=== PATIENT | male | born 1980 | race Caucasian/White ===

== ENCOUNTER 2019-10-30 02:17 | Emergency (ER) | payer OTHER, SELFPAY ==
[2019-10-30 02:30] VITALS: BP 156/91; RESP 16; TEMP 36.7; BMI 27.8
[2019-10-30 02:35] VITALS: PULSE 64; O2SAT 100
--- NOTE | 2019-10-30 02:47 | ED_ITS ---
HPI - Extremity Problem General: Chief complaint: Extremity Injury, Upper Stated complaint: R HAND LAC/WC Time Seen by Provider: 10/30/19 02:47 History of Present Illness: HPI Narrative: Patient is a 39-year-old male comes into the ED with a laceration to his right hand. Laceration is over the knuckle of right fifth finger. Patient says a piece of glass broke and cut skin over knuckle of right 5th finger. Patient had his tetanus vaccination within the la [facility] 2 years. He has no pain moving his fifth finger and has sensation to his fifth finger. Patient denies any fever, chills, chest pain, nausea, vomiting, shortness of breath, abdominal pain, numbness or tingling to extremities, upper respiratory symptoms, dysuria, hematuria, diarrhea, constipation, blood in the stool. Review of Systems General: Reports: 10 or more systems reviewed and unremarkable except in HPI and below PFSH ED PFSH: Statuses (acute, chronic, etc) shown below reflect problem list status as previously entered and may not be historically accurate Social History Smoking and tobacco status: current every day smoker Physical Exam Const: COMMON NORMALS: oriented x3 HENMT: COMMON NORMALS: normocephalic HEAD & SCALP: normocephalic MOUTH: oral and palatal mucosa normal THROAT: posterior oropharynx normal and uvula midline Neck/C-Spine: COMMON NORMALS: supple GENERAL: Yes normal visual inspection Resp: COMMON NORMALS: normal respiratory effort, no retractions, no use of accessory muscles and clear to auscultation bilaterally AUSCULTATION: clear to auscultation bilaterally Cardio: COMMON NORMALS: regular rate, regular rhythm, S1 normal heart sound, S2 normal heart sound, no gallops, no clicks, no murmurs and peripheral pulses 2+ throughout RATE: regular rate RHYTHM: regular rhythm HEART SOUNDS: S1 normal and S2 normal PERIPHERAL PULSES: pulses 2+ throughout GI: COMMON NORMALS: normal to inspection, nondistended, normoactive bowel sounds, soft to palpation, non-tender and no masses PALPATION: Yes soft : COMMON NORMALS: Yes no CVA tenderness BLADDER/KIDNEY EXAM: Yes no CVA tenderness Back/Pelvis: COMMON NORMALS: no CVA tenderness Extremity: RIGHT UPPER EXTREMITY: Yes hand & digits Right hand and digits: Yes ROM exam (normal) and Yes neurovascular exam (intact) Neuro: COMMON NORMALS: oriented x3 Skin: TRAUMA: laceration (3cm-no nail involvement) flap, superficial, motor nerve function intact and sensation intact Procedures Laceration Laceration 1: Site: hand Side (If applicable): right Size (cm): 3 Description: flap Depth: simple, single layer Pre-repair: irrigated extensively (Irrigated w/ N Saline and cleane with HCG.) Skin layer closed with: other (Dermabond and Steri strips.) Course ED course: Laceration was irrigated extensively with normal saline and then cleaned with CHG. laceration was closed using Dermabond and Steri-Strips. A bandage was then placed over laceration. Vital Signs: Vital signs: Vital Signs Temperature 98.1 F 10/30/19 02:30 Pulse Rate 58 L 10/30/19 03:51 Respiratory Rate 17 10/30/19 03:51 Blood Pressure 156/91 10/30/19 02:30 Pulse Oximetry 98 10/30/19 03:51 Discharge Plan Discharge Patient Disposition: Home, Self-Care Clinical Impression: Laceration Condition: Stable Prescriptions: New Bactrim DS 800-160 mg tablet 1 tab PO DAILY 5 Days Qty: 5 RF: 0 Discharge Orders: Discharge Order (Routine); Ordered 10/30/19 Ordered By: Marlon Ma Referrals: Ismael Nieves MD [Family Provider] - Discharge Diet: Regular Discharge Activity: Resume usual activity Activity Restrictions/Additional Instructions: Keep wound area clean and dry and do not remove bandage for 48 hours. Then he can remove bandage in clean with warm soapy water daily. Take full course of antibiotics as prescribed. Follow-up with primary care doctor for reevaluation in 5-7 days. Watch for signs of infection such as redness or warmth or drainage around laceration. Discharge Date/Time: 10/30/19 03:51 Coding Level of Care Code ED Deaf Interpreter for Dwight Jensen
[2019-10-30 03:51] VITALS: PULSE 58; RESP 17; O2SAT 98
== END 2019-10-30 03:51 | disposition home or self-care (01) ==
PROVIDERS: Emergency Provider Physician Assistant; Family Provider Family Medicine
DX: S61.411A Laceration without foreign body of right hand, initial encounter (principal); W25.XXXA Contact with sharp glass, initial encounter; F17.210 Nicotine dependence, cigarettes, uncomplicated
CPT/HCPCS: 12002; 99281; A4216

== ENCOUNTER 2019-10-30 18:51 | Emergency (ER) | payer OTHER, SELFPAY ==
[2019-10-30 19:05] VITALS: BP 140/87; PULSE 76; RESP 18; TEMP 36.8; O2SAT 99; BMI 26.3
--- NOTE | 2019-10-30 19:18 | ED_ITS ---
Entered by Melody Jimenez, acting as scribe for Alis Manuel DO HPI - Extremity Problem General: Chief complaint: Extremity Injury, Upper Stated complaint: right hand pain Time Seen by Provider: 10/30/19 19:18 Source: patient Mode of arrival: ambulatory Limitations: no limitations History of Present Illness: HPI Narrative: 39 yo m came to the er pov for re- opened wound that was glued last night. Complaint: extremity pain Onset (ago): day(s) (today) Location: right (uckle) Quality: other (pain) Radiation: none Exacerbating factors: nothing Associated symptoms: Reports no associated symptoms; Deny chest pain, fever(s) or rash Review of Systems General: Reports: 10 or more systems reviewed and unremarkable except in HPI and below Const: Denies: fever, chills, change in appetite or malaise Eyes: Denies: change in vision, blurry vision, eye discharge or eye redness ENMT: Denies: throat pain, uvular edema, painful swallowing, mouth pain, dental pain, nasal congestion or facial/sinus pain Card: Denies: chest pain, irregular heart rhythm, swelling of feet/ankles, shortness of breath on exertion, shortness of breath when lying down or leg pain with exertion Resp: Denies: shortness of breath, productive cough, wheezing or coughing up blood GI: Denies: abdominal pain, nausea, vomiting, diarrhea, constipation or fecal incontinence : Denies: flank pain, painful urination, urinary frequency, urinary urgency or urinary hesitancy Musc: Denies: neck pain, back pain, extremity pain or extremity swelling Skin/Breast: Denies: rash, itching, redness, yellow skin or dry skin Neuro: Denies: headache, numbness in extremities, weakness in extremities, changes in sensation, lack of coordination or difficulty walking Psych: Denies: anxiety, depression, mood swings, panic attacks, sleeping less, suicidal ideation or homicidal ideation Endo: Denies: excessive urination, excessive thirst or tired all the time Jayce/Lymph: Denies: easy bruising, petechiae or enlarged lymph nodes All/Imm: Denies: hives, throat swelling, facial swelling, acute wheezing or seasonal allergies PFSH ED PFSH: Statuses (acute, chronic, etc) shown below reflect problem list status as previously entered and may not be historically accurate Social History Smoking and tobacco status: current every day smoker Physical Exam Const: COMMON NORMALS: no apparent distress, oriented x3, no limitations, healthy appearing, alert and well nourished GENERAL APPEARANCE: cooperative, comfortable, well kempt and well developed ORIENTATION/CONSCIOUSNESS: Yes awake, Yes oriented to person, Yes oriented to place and Yes oriented to time HENMT: COMMON NORMALS: normocephalic, head/scalp atraumatic, hearing grossly normal bilaterally, external ears normal, EAC's normal, TM's normal bilaterally, external nose normal, nasal mucous membranes and turbinates normal, moist oral mucous membranes, oropharynx normal, dentition normal and gingiva normal HEAD & SCALP: normal to inspection, normocephalic and atraumatic FACE & SINUS: normal facial exam NOSE: external nose normal and nasal mucous membranes and turbinates normal EXTERNAL EAR: Yes external ears normal EXTERNAL AUDITORY CANAL: EAC's normal TYMPANIC MEMBRANE: TM's normal bilaterally MOUTH: oral and palatal mucosa normal, lip normal and tongue normal THROAT: no uvular edema Eye: COMMON NORMALS: PERRL, EOMs intact bilaterally, conjunctivae normal, no scleral icterus and normal visual [place] by confrontation GENERAL EYE: normal appearance of both eyes and normal light reflex VISUAL ACUITY: Yes acuity normal ALIGNMENT: Yes alignment normal PERIORBITAL: periorbital findings normal EYELID: eyelids normal CONJUNCTIVA: Yes conjunctivae normal SCLERA: sclerae normal PUPIL: Yes PERRL and Yes accommodation reflex normal DIRECT OPHTHALMOSCOPY: Yes normal light reflex Neck/C-Spine: COMMON NORMALS: full ROM, no lymphadenopathy, supple, no meningeal signs and no JVD GENERAL: Yes normal visual inspection CAROTIDS: Yes normal carotid upstroke CERVICAL SPINE: Yes cervical ROM normal Lymph: LYMPHATIC: no lymphadenopathy noted Chest: COMMONS NORMALS: inspection of chest normal CHEST: Yes symmetrical chest wall rise Resp: COMMON NORMALS: normal respiratory effort, no retractions, no use of accessory muscles and clear to auscultation bilaterally EFFORT & INSPECTION: Yes able to speak in complete sentences and Yes symmetric chest movement AUSCULTATION: clear to auscultation bilaterally Cardio: COMMON NORMALS: no JVD, regular rate, regular rhythm, S1 normal heart sound, S2 normal heart sound, no murmurs and peripheral pulses 2+ throughout RATE: regular rate RHYTHM: regular rhythm HEART SOUNDS: S1 normal and S2 normal PERIPHERAL PULSES: pulses 2+ throughout GI: COMMON NORMALS: normal to inspection, nondistended, normoactive bowel sounds and non-tender : COMMON NORMALS: Yes no CVA tenderness BLADDER/KIDNEY EXAM: Yes no CVA tenderness Back/Pelvis: COMMON NORMALS: no CVA tenderness, thoracic and lumbar spine normal to inspection, no thoracic nor lumbar tenderness and thoraco-lumbar ROM normal Extremity: COMMON NORMALS: full ROM, normal capillary refill, no calf tenderness and no pedal edema Neuro: COMMON NORMALS: oriented x3, CN's II-XII intact bilaterally, moves all extremities, no focal motor deficits, no sensory deficits noted and gait normal SENSORIUM/ORIENTATION: Yes alert, Yes oriented to person, Yes oriented to place and Yes oriented to time MENINGEAL SIGNS: Yes no meningeal signs SPEECH: speech normal GAIT: Yes normal gait MOTOR EXAM: strength 5/5 throughout, no pronator drift and no tremor noted Psych: COMMON NORMALS: mental status grossly normal, thought process normal, cooperative, affect normal, speech normal and activity/motor behavior normal APPEARANCE: Yes well kempt SPEECH: Yes normal speech THOUGHT PROCESS: normal thought process THOUGHT CONTENT: Yes normal thought content INSIG HT: insight good Skin: COMMON NORMALS: no rashes or lesions noted, no wounds, skin turgor normal and no jaundice GENERAL SKIN EXAM: no rashes or lesions noted and turgor normal Procedures Laceration Laceration 1: Site: hand (fifth MCP right hand) Side (If applicable): right Size (cm): 2 Description: flap Depth: simple, single layer Pre-repair: irrigated extensively Skin layer closed with: other (Dermabond) Course ED course: wound cleansed and dermabond applied with steri strips. Splint applied to keep pt from flexing at joint to assist in wound healing. Vital Signs: Vital signs: Vital Signs Temperature 98.2 F 10/30/19 19:05 Pulse Rate 76 10/30/19 19:05 Respiratory Rate 18 10/30/19 19:05 Blood Pressure 140/87 10/30/19 19:05 Pulse Oximetry 99 10/30/19 19:05 Discharge Plan Discharge Patient Disposition: Home, Self-Care Clinical Impression: Laceration Condition: Stable Prescriptions: No Action Bactrim DS 800-160 mg tablet 1 tab PO DAILY 5 Days Qty: 5 RF: 0 Referrals: Ismael Nieves MD [Family Provider] - Discharge Diet: Usual diet Discharge Activity: Limit activity as instructed Patient Instructions: Skin Adhesive Care (ED), Finger Laceration (ED) Coding Level of Care Code ED Greeting Card Writer for Chg Fwd Exam Problem Focused The documentation recorded by the Tony paris Stephanie Lyn, accurately reflects the service I personally performed and the decisions made by , Alis Manuel, DO
--- NOTE | 2019-10-30 19:44 | PC.NURSE ---
Wound to right hand glued and aluminum finger splint was placed, neurovascular intact, cap refill less than 3 seconds
== END 2019-10-30 19:53 | disposition home or self-care (01) ==
LOC: ER 23:05
PROVIDERS: Emergency Provider Emergency Medicine; Family Provider Family Medicine
DX: S61.216A Laceration without foreign body of right little finger without damage to nail, initial encounter (principal); X58.XXXA Exposure to other specified factors, initial encounter; F17.210 Nicotine dependence, cigarettes, uncomplicated
CPT/HCPCS: 12001; 99281

== ENCOUNTER 2019-11-07 09:23 | Emergency (ER) | payer OTHER, SELFPAY ==
[2019-11-07 09:26] VITALS: RESP 16; BMI 26.3
--- NOTE | 2019-11-07 09:29 | ED_ITS ---
Entered by Yamilka Key, acting as scribe for HPI - Skin/Abscess/Foreign Bdy General: Chief complaint: Extremity Injury, Upper Stated complaint: Right hand pain Time Seen by Provider: 11/07/19 09:29 Source: patient Mode of arrival: ambulatory Limitations: no limitations History of Present Illness: HPI narrative: 39 yo male presents with R hand tenderness. pt states this started 7 days ago but worsened today. pt states he cut his hand on glass. pt states he was seen in the ED for the same they glued it twice and placed on antibiotics- Bacterium. pt states his hand is tender and its hard to move his hand back and forth. pt has had increased redness and felt like he had a fever at home. pt has had chills. pt denies any other symptoms at this time. MD complaint: laceration and abscess/boil Onset (ago): day(s) (3 days ago) Tetanus up to date: yes Location: R hand Severity: moderate Quality: other Pain Consistency: constant Relieving factors: none Exacerbating factors: movement (of the hand) Context: new medication (Bactrium) Associated symptoms: Reports chills, fever(s) (subjective) and other (tenderness); Deny nausea or vomiting Treatments prior to arrival: antibiotic (Bactrium 3 days ago from ED) Review of Systems Const: Reports: fever (subjective) and chills Eyes: Denies: blurry vision or eye discharge ENMT: Denies: throat pain, nasal congestion or facial/sinus pain Card: Denies: chest pain or shortness of breath on exertion Resp: Denies: shortness of breath, productive cough or non-productive cough GI: Denies: abdominal pain, nausea, vomiting, diarrhea or constipation : Denies: difficulty urinating or painful urination Musc: Reports: extremity pain, extremity swelling and joint pain; Denies: neck pain or back pain Skin/Breast: Reports: redness (R hand) and skin tenderness Neuro: Denies: headache, numbness in extremities, weakness in extremities or dizziness Psych: Denies: anxiety or depression Endo: Denies: excessive urination or excessive thirst Jayce/Lymph: Denies: easy bruising, petechiae or enlarged lymph nodes All/Imm: Denies: acute wheezing PFSH ED PFSH: Statuses (acute, chronic, etc) shown below reflect problem list status as previously entered and may not be historically accurate Medical History Amputation of right middle finger (Acute) Social History Smoking and tobacco status: current every day smoker Physical Exam Const: COMMON NORMALS: no apparent distress, oriented x3, no limitations, healthy appearing, alert and well nourished GENERAL APPEARANCE: cooperative, comfortable, well kempt and well developed ORIENTATION/CONSCIOUSNESS: Yes awake, Yes oriented to person, Yes oriented to place and Yes oriented to time HENMT: COMMON NORMALS: normocephalic, head/scalp atraumatic, hearing grossly normal bilaterally, external ears normal, external nose normal and moist oral mucous membranes HEAD & SCALP: normocephalic and atraumatic FACE & SINUS: normal facial exam and face symmetric NOSE: external nose normal EXTERNAL EAR: Yes external ears normal and Yes external ear abnormal Eye: COMMON NORMALS: EOMs intact bilaterally and conjunctivae normal GENERAL EYE: normal appearance of both eyes ALIGNMENT: Yes alignment normal EYELID: eyelids normal CONJUNCTIVA: Yes conjunctivae normal SCLERA: sclerae normal Neck/C-Spine: COMMON NORMALS: full ROM and no lymphadenopathy GENERAL: Yes normal visual inspection CERVICAL SPINE: Yes cervical ROM normal Lymph: LYMPHATIC: no lymphadenopathy noted Chest: COMMONS NORMALS: inspection of chest normal CHEST: Yes symmetrical chest wall rise Resp: COMMON NORMALS: normal respiratory effort, no use of accessory muscles and clear to auscultation bilaterally EFFORT & INSPECTION: Yes able to speak in complete sentences, Yes symmetric chest movement and No respiratory distress AUSCULTATION: clear to auscultation bilaterally Cardio: COMMON NORMALS: regular rate and regular rhythm RATE: regular rate RHYTHM: regular rhythm PERIPHERAL PULSES: radial pulses present GI: COMMON NORMALS: normal to inspection, nondistended, normoactive bowel sounds, soft to palpation and non-tender PALPATION: Yes soft RECTAL EXAM: Yes deferred : COMMON NORMALS: Yes no CVA tenderness BLADDER/KIDNEY EXAM: Yes no CVA tenderness Back/Pelvis: COMMON NORMALS: no CVA tenderness THORACIC SPINE/UPPER BACK: No pain with ROM LUMBAR SPINE/LOWER BACK: No pain with ROM Extremity: COMMON NORMALS: normal capillary refill and no pedal edema; negative for normal to inspection and negative for full ROM GENERAL: Yes normal exam except as noted RIGHT UPPER EXTREMITY: Yes hand & digits (R hand redness and tenderness) Right hand and digits: Yes inspection (erythema, induration over wound, 5th MCP joint. no drainage. ), Yes palpation (TTP), Yes ROM exam (Limited), Yes neurovascular exam (intact) and Yes tendon exam (pain with active/passive ROM flexion/extension of 4th and 5th digits) Neuro: JUANA COMA SCALE: GCS not evaluated COMMON NORMALS: oriented x3, moves all extremities, no focal motor deficits and no sensory deficits noted SENSORIUM/ORIENTATION: Yes alert, Yes oriented to person, Yes oriented to place and Yes oriented to time SPEECH: speech normal GAIT: Yes normal gait Psych: COMMON NORMALS: mental status grossly normal, thought process normal, cooperative, affect normal and speech normal APPEARANCE: Yes grossly normal and Yes well kempt ATTITUDE: Yes calm ACTIVITY/MOTOR BEHAVIOR: Yes appropriate eye contact SPEECH: Yes normal speech THOUGHT PROCESS: normal thought process THOUGHT CONTENT: Yes normal thought content ATTENTION/CONCENTRATION: Yes attention grossly intact MEMORY/COGNITION: Yes memory grossly intact and Yes cognition grossly intact INSIGHT: insight good JUDGEMENT: judgment good Skin: COMMON NORMALS: no rashes or lesions noted, skin turgor normal and no petechiae GENERAL SKIN EXAM: no rashes or lesions noted and turgor normal RASHES: no rashes TRAUMA: no lacerations or abrasions WOUNDS: Yes wounds noted (right 5th MCP joint) WOUNDS: Yes wounds noted (right 5th MCP joint) HAIR: normal NAILS: normal Course ED course: Discussed with Dr. Arenas. adding labs, 1 dose of IV vanc. will dc on Doxycycline. he will see in office tomorrow at 10am Vital Signs: Vital signs: Vital Signs Temperature 98.5 F 11/07/19 12:17 Pulse Rate 80 11/07/19 12:17 Respiratory Rate 16 11/07/19 12:17 Blood Pressure 143/84 11/07/19 12:17 Pulse Oximetry 97 11/07/19 12:17 MDM - Skin/Abscess/Foreign Bdy MDM Narrative: Medical decision making narrative: ddx includes cellulitis, abscess, flexor/extensor tenosivitis Lab Data: Attestation: I reviewed the patient's lab results. Labs: Lab Results 11/07/19 11/07/19 11/07/19 Range/Units 10:09 10:09 10:09 WBC 12.7 H (4.0-10.0) 10^3/ uL RBC 5.47 H (4.1-5.3) 10^6/u L Hgb 15.8 (11.7-16.6) g/dL Hct 47.8 (42.0-52.0) % MCV 87.4 (80-94) fL MCH 28.9 (28.0-34.0) pg MCHC 33.1 (30.0-36.0) g/dL RDW 11.8 L (12.1-15.1) % Plt Count 313 (130-400) 10^3/c mm MPV 9.4 (7.4-10.4) fL Neut % (Auto) 77.9 % Lymph % (Auto) 12.7 % [place] % (Auto) 8.4 % Eos % (Auto) 0.3 % Baso % (Auto) 0.4 % Neut # (Auto) 9.9 H (1.8-7.7) 10^3/u L Lymph # (Auto) 1.6 (0.8-4.8) 10^3/u L [place]atte # (Auto) 1.1 H (0.2-0.9) 10^3/u L Eos # (Auto) 0.0 (0.0-0.8) 10^3/u L Baso # (Auto) 0.1 (0.0-0.1) 10^3/u L Nucleated RBC % (a uto) 0 % Nucleated RBCs # 0.0 /100WBC ESR 9 (0-10) mm/hr C-Reactive Protein 13.1 H (0.0-4.9) mg/L Discharge Plan Discharge Patient Disposition: Home, Self-Care Clinical Impression: Cellulitis of finger of right hand Condition: Stable Prescriptions: New doxycycline hyclate 100 mg capsule 100 mg PO BID 10 Days Qty: 20 RF: 0 Discharge Orders: Discharge Order (Routine); Ordered 11/07/19 Ordered By: Santana Ruiz Referrals: Ismael Nieves MD [Family Provider] - Zachery Arenas DO [Physician] - 11/08/19 10:00 am Discharge Diet: Usual diet Discharge Activity: Limit activity as instructed Activity Restrictions/Additional Instructions: resume your home medications (if any). Follow-up with your primary care provider within the next 3-5 days. Follow-up with Dr. Arenas tomorrow at 10am as scheduled. Return to the Emergency Department for worsening conditions or other concerning symptoms. take the antibiotics as prescribed. do not stop just because you feel better Discharge Date/Time: 11/07/19 12:19 Coding Level of Care Code ED Secretary Of Police for g Camila The documentation recorded by the Shahid paris Bridget Annette, accurately reflects the service I personally performed and the decisions made by me, Santana Ruiz MD Nov 07, 2019 09:23
[2019-11-07 09:37] VITALS: BP 135/96; PULSE 86; RESP 16; O2SAT 98
[2019-11-07 09:40] VITALS: PULSE 77
--- NOTE | 2019-11-07 09:40 | ED_ITS ---
HPI - Extremity Problem General: Chief complaint: Extremity Injury, Upper Stated complaint: Right hand pain Time Seen by Provider: 11/07/19 09:29 Source: patient Mode of arrival: ambulatory Limitations: no limitations History of Present Illness: Pain Consistency: constant Associated symptoms: Deny chest pain, fever(s) or rash Review of Systems Const: Denies: fever or chills Eyes: Denies: blurry vision or eye discharge ENMT: Denies: throat pain, nasal congestion or facial/sinus pain Card: Denies: chest pain or shortness of breath on exertion Resp: Denies: shortness of breath, productive cough or non-productive cough GI: Denies: abdominal pain, nausea, vomiting, diarrhea or constipation : Denies: difficulty urinating or painful urination Musc: Reports: joint pain, joint swelling, redness, joint warmth, joint stiffness and limited range of motion; Denies: neck pain or back pain Skin/Breast: Denies: rash, redness or sores Neuro: Denies: headache, numbness in extremities, weakness in extremities or dizziness Psych: Denies: anxiety or depression Endo: Denies: excessive urination or excessive thirst Jayce/Lymph: Denies: easy bruising, petechiae or enlarged lymph nodes All/Imm: Denies: hives or acute wheezing PFSH ED PFSH: Statuses (acute, chronic, etc) shown below reflect problem list status as previously entered and may not be historically accurate Medical History Amputation of right middle finger (Acute) Social History Smoking and tobacco status: current every day smoker Physical Exam Const: COMMON NORMALS: no apparent distress, oriented x3, no limitations, healthy appearing, alert and well nourished GENERAL APPEARANCE: cooperative, comfortable, well kempt and well developed ORIENTATION/CONSCIOUSNESS: Yes awake, Yes oriented to person, Yes oriented to place and Yes oriented to time HENMT: COMMON NORMALS: normocephalic, head/scalp atraumatic, hearing grossly normal bilaterally, external ears normal, external nose normal and moist oral mucous membranes HEAD & SCALP: normocephalic and atraumatic FACE & SINUS: normal facial exam and face symmetric NOSE: external nose normal EXTERNAL EAR: Yes external ears normal and Yes external ear abnormal Eye: COMMON NORMALS: EOMs intact bilaterally and conjunctivae normal GENERAL EYE: normal appearance of both eyes ALIGNMENT: Yes alignment normal EYELID: eyelids normal CONJUNCTIVA: Yes conjunctivae normal SCLERA: sclerae normal Neck/C-Spine: COMMON NORMALS: full ROM and no lymphadenopathy GENERAL: Yes normal visual inspection CERVICAL SPINE: Yes cervical ROM normal Lymph: LYMPHATIC: no lymphadenopathy noted Chest: COMMONS NORMALS: inspection of chest normal CHEST: Yes symmetrical chest wall rise Resp: COMMON NORMALS: normal respiratory effort, no use of accessory muscles and clear to auscultation bilaterally EFFORT & INSPECTION: Yes able to speak in complete sentences, Yes symmetric chest movement and No respiratory distress AUSCULTATION: clear to auscultation bilaterally Cardio: COMMON NORMALS: regular rate and regular rhythm RATE: regular rate RHYTHM: regular rhythm PERIPHERAL PULSES: radial pulses present GI: COMMON NORMALS: normal to inspection, nondistended, normoactive bowel sounds, soft to palpation and non-tender PALPATION: Yes soft RECTAL EXAM: Yes deferred : COMMON NORMALS: Yes no CVA tenderness BLADDER/KIDNEY EXAM: Yes no CVA tenderness Back/Pelvis: COMMON NORMALS: no CVA tenderness THORACIC SPINE/UPPER BACK: No pain with ROM LUMBAR SPINE/LOWER BACK: No pain with ROM Extremity: COMMON NORMALS: normal to inspection, full ROM, normal capillary refill and no pedal edema GENERAL: Yes normal exam except as noted Neuro: JUANA COMA SCALE: GCS not evaluated COMMON NORMALS: oriented x3, moves all extremities, no focal motor deficits and no sensory deficits noted SENSORIUM/ORIENTATION: Yes alert, Yes oriented to person, Yes oriented to place and Yes oriented to time SPEECH: speech normal GAIT: Yes normal gait Psych: COMMON NORMALS: mental status grossly normal, thought process normal, cooperative, affect normal and speech normal APPEARANCE: Yes grossly normal and Yes well kempt ATTITUDE: Yes calm ACTIVITY/MOTOR BEHAVIOR: Yes appropriate eye contact SPEECH: Yes normal speech THOUGHT PROCESS: normal thought process THOUGHT CONTENT: Yes normal thought content ATTENTION/CONCENTRATION: Yes attention grossly intact MEMORY/COGNITION: Yes memory grossly intact and Yes cognition grossly intact INSIGHT: insight good JUDGEMENT: judgment good Skin: COMMON NORMALS: no rashes or lesions noted, skin turgor normal and no petechiae GENERAL SKIN EXAM: no rashes or lesions noted and turgor normal RASHES: no rashes TRAUMA: no lacerations or abrasions HAIR: normal NAILS: normal Course ED course: On exam, patient has erythema and induration over the right fifth MCP joint. The wound is closed, there is no drainage. He has limited range of motion with pain on active and passive flexion and extension of the fifth digit. Also mild pain with active and passive range of motion to the fourth digit. Discussed the patient with Dr. Arenas. Were going to draw basic labs for him to follow in clinic. Were going to give a dose of vancomycin here in the ER and add doxycycline to his home antibiotic regimen. He is going to follow him tomorrow in clinic at 10 AM. Vital Signs: Vital signs: Vital Signs Temperature 98.5 F 11/07/19 12:17 Pulse Rate 80 11/07/19 12:17 Respiratory Rate 16 11/07/19 12:17 Blood Pressure 143/84 11/07/19 12:17 Pulse Oximetry 97 11/07/19 12:17 MDM - Extremity (Nontraumatic) MDM Narrative: Medical decision making narrative: cellulitis, abscess, flexor/extensor tenosivitis, others Lab Data: Labs: Lab Results 11/07/19 11/07/19 11/07/19 Range/Units 10:09 10:09 10:09 WBC 12.7 H (4.0-10.0) 10^3/ uL RBC 5.47 H (4.1-5.3) 10^6/u L Hgb 15.8 (11.7-16.6) g/dL Hct 47.8 (42.0-52.0) % MCV 87.4 (80-94) fL MCH 28.9 (28.0-34.0) pg MCHC 33.1 (30.0-36.0) g/dL RDW 11.8 L (12.1-15.1) % Plt Count 313 (130-400) 10^3/c mm MPV 9.4 (7.4-10.4) fL Neut % (Auto) 77.9 % Lymph % (Auto) 12.7 % Dickson % (Auto) 8.4 % Eos % (Auto) 0.3 % Baso % (Auto) 0.4 % Neut # (Auto) 9.9 H (1.8-7.7) 10^3/u L Lymph # (Auto) 1.6 (0.8-4.8) 10^3/u L Dickson # (Auto) 1.1 H (0.2-0.9) 10^3/u L Eos # (Auto) 0.0 (0.0-0.8) 10^3/u L Baso # (Auto) 0.1 (0.0-0.1) 10^3/u L Nucleated RBC % (a uto) 0 % Nucleated RBCs # 0.0 /100WBC ESR 9 (0-10) mm/hr C-Reactive Protein 13.1 H (0.0-4.9) mg/L Discharge Plan Discharge Patient Disposition: Home, Self-Care Clinical Impression: Cellulitis of finger of right hand Condition: Stable Prescriptions: New doxycycline hyclate 100 mg capsule 100 mg PO BID 10 Days Qty: 20 RF: 0 Discharge Orders: Discharge Order (Routine); Ordered 11/07/19 Ordered By: Santana Ruiz Referrals: Ismael Nieves MD [Family Provider] - Zachery Arenas DO [Physician] - 11/08/19 10:00 am Discharge Diet: Usual diet Discharge Activity: Limit activity as instructed Activity Restrictions/Additional Instructions: resume your home medications (if any). Follow-up with your primary care provider within the next 3-5 days. Follow-up with Dr. Arenas tomorrow at 10am as scheduled. Return to the Emergency Department for worsening conditions or other concerning symptoms. take the antibiotics as prescribed. do not stop just because you feel better Discharge Date/Time: 11/07/19 12:19 Coding Level of Care Code ED Commercial Solar Sales Consultant for Chg Fwd Exam Problem Focused
[2019-11-07 09:43] VITALS: TEMP 36.9
[2019-11-07 10:21] LABS: Basophils # 0.1 10^3/uL (0.0-0.1); Basophils % 0.4 %; Eosinophils % 0.3 %; Hematocrit 47.8 % (42.0-52.0); Hemoglobin 15.8 g/dL (11.7-16.6); Lymphocytes # 1.6 10^3/uL (0.8-4.8); Lymphocytes % 12.7 %; Mean Corpuscular HGB Conc 33.1 g/dL (30.0-36.0); Mean Corpuscular Hemoglobin 28.9 pg (28.0-34.0); Mean Corpuscular Volume 87.4 fL (80-94); Mean Platelet Volume 9.4 fL (7.4-10.4); Monocytes # 1.1 10^3/uL (0.2-0.9); Monocytes % 8.4 %; Neutrophils # 9.9 10^3/uL (1.8-7.7); Neutrophils % 77.9 %; Nucleated Red Blood Cells % 0 %; Platelet Count 313 10^3/cmm (130-400); Red Blood Count 5.47 10^6/uL (4.1-5.3); Red Cell Distribution Width 11.8 % (12.1-15.1); White Blood Count 12.7 10^3/uL (4.0-10.0)
[2019-11-07 10:41] LABS: C Reactive Protein 13.1 mg/L (0.0-4.9)
[2019-11-07 11:06] LABS: Erythrocyte Sedimentation Rate 9 mm/hr (0-10)
[2019-11-07 12:17] VITALS: BP 143/84; PULSE 80; RESP 16; TEMP 36.9; O2SAT 97
--- NOTE | 2019-11-07 15:19 | W.ED.EXTPRO ---
HPI - Extremity Problem General: Chief complaint: Extremity Injury, Upper Stated complaint: Right hand pain Time Seen by Provider: 11/07/19 09:29 Source: patient Mode of arrival: ambulatory Limitations: no limitations History of Present Illness: Pain Consistency: constant PFSH ED PFSH: Statuses (acute, chronic, etc) shown below reflect problem list status as previously entered and may not be historically accurate Medical History Amputation of right middle finger (Acute) Social History Smoking and tobacco status: current every day smoker Course Vital Signs: Vital signs: Vital Signs Temperature 98.5 F 11/07/19 12:17 Pulse Rate 80 11/07/19 12:17 Respiratory Rate 16 11/07/19 12:17 Blood Pressure 143/84 11/07/19 12:17 Pulse Oximetry 97 11/07/19 12:17 MDM - Extremity (Nontraumatic) Lab Data: Labs: Lab Results 11/07/19 11/07/19 11/07/19 Range/Units 10:09 10:09 10:09 WBC 12.7 H (4.0-10.0) 10^3/ uL RBC 5.47 H (4.1-5.3) 10^6/u L Hgb 15.8 (11.7-16.6) g/dL Hct 47.8 (42.0-52.0) % MCV 87.4 (80-94) fL MCH 28.9 (28.0-34.0) pg MCHC 33.1 (30.0-36.0) g/dL RDW 11.8 L (12.1-15.1) % Plt Count 313 (130-400) 10^3/c mm MPV 9.4 (7.4-10.4) fL Neut % (Auto) 77.9 % Lymph % (Auto) 12.7 % [place] % (Auto) 8.4 % Eos % (Auto) 0.3 % Baso % (Auto) 0.4 % Neut # (Auto) 9.9 H (1.8-7.7) 10^3/u L Lymph # (Auto) 1.6 (0.8-4.8) 10^3/u L [place] # (Auto) 1.1 H (0.2-0.9) 10^3/u L Eos # (Auto) 0.0 (0.0-0.8) 10^3/u L Baso # (Auto) 0.1 (0.0-0.1) 10^3/u L Nucleated RBC % (a uto) 0 % Nucleated RBCs # 0.0 /100WBC ESR 9 (0-10) mm/hr C-Reactive Protein 13.1 H (0.0-4.9) mg/L Discharge Plan Discharge Patient Disposition: Home, Self-Care Clinical Impression: Cellulitis of finger of right hand Condition: Stable Prescriptions: New doxycycline hyclate 100 mg capsule 100 mg PO BID 10 Days Qty: 20 RF: 0 Discharge Orders: Discharge Order (Routine); Ordered 11/07/19 Ordered By: Santana Ruiz Referrals: Ismael Nieves MD [Family Provider] - Zachery Arenas DO [Physician] - 11/08/19 10:00 am Discharge Diet: Usual diet Discharge Activity: Limit activity as instructed Activity Restrictions/Additional Instructions: resume your home medications (if any). Follow-up with your primary care provider within the next 3-5 days. Follow-up with Dr. Arenas tomorrow at 10am as scheduled. Return to the Emergency Department for worsening conditions or other concerning symptoms. take the antibiotics as prescribed. do not stop just because you feel better Interventions: ED Discharge Assessment Last Done: 11/07/19 12:17 Discharge Date/Time: 11/07/19 12:19 Coding Level of Care Code ED Teradata Developer for Dwight Jensen
== END 2019-11-07 12:19 | disposition home or self-care (01) ==
PROVIDERS: Emergency Provider Emergency Medicine; Family Provider Family Medicine
DX: L03.011 Cellulitis of right finger (principal); Z89.021 Acquired absence of right finger(s); F17.210 Nicotine dependence, cigarettes, uncomplicated
CPT/HCPCS: 36415; 85025; 85651; 86140; 96365; 96366; 99282; J3370; J7050

== ENCOUNTER 2019-11-07 20:05 | Emergency (ER) | payer OTHER, SELFPAY ==
[2019-11-07 20:08] VITALS: BP 135/73; PULSE 86; RESP 17; TEMP 37.7; O2SAT 95; BMI 26.3
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
--- NOTE | 2019-11-07 20:24 | PC.NURSE ---
Patient states he has a history of staph infection. Began swelling after removing splint earlier today. Injury occurred 1 week 1 day ago
[2019-11-07 21:03] LABS: Basophils % 0.3 %; Eosinophils % 0.1 %; Hematocrit 44.5 % (42.0-52.0); Hemoglobin 14.9 g/dL (11.7-16.6); Lymphocytes # 2.1 10^3/uL (0.8-4.8); Lymphocytes % 22.2 %; Mean Corpuscular HGB Conc 33.5 g/dL (30.0-36.0); Mean Corpuscular Hemoglobin 29.2 pg (28.0-34.0); Mean Corpuscular Volume 87.1 fL (80-94); Mean Platelet Volume 9.4 fL (7.4-10.4); Monocytes % 10.2 %; Neutrophils # 6.4 10^3/uL (1.8-7.7); Neutrophils % 66.8 %; Nucleated Red Blood Cells % 0 %; Platelet Count 288 10^3/cmm (130-400); Red Blood Count 5.11 10^6/uL (4.1-5.3); Red Cell Distribution Width 11.6 % (12.1-15.1); White Blood Count 9.6 10^3/uL (4.0-10.0)
[2019-11-07] MEDS: cephALEXin 500 mg Capsule PO (21:32)
[2019-11-07 21:41] VITALS: BP 123/84; PULSE 82; RESP 18; O2SAT 95
--- NOTE | 2019-11-08 12:19 | DCPLANNER ---
lodging manager had message to schedule a follow up appointment for patient with ortho. lodging manager called the ortho clinic, spoke with Pat, gave clinic patients information. lodging manager was told that patient was seen today, 11.08.[address] Arensa, and that patient did attend that appointment.
== END 2019-11-07 21:40 | disposition home or self-care (01) ==
PROVIDERS: Emergency Provider Nurse Practitioner Family; Family Provider Family Medicine
DX: S69.91XA Unspecified injury of right wrist, hand and finger(s), initial encounter (principal); W25.XXXA Contact with sharp glass, initial encounter; F17.210 Nicotine dependence, cigarettes, uncomplicated
CPT/HCPCS: 73130; 85025; 87070; 99282

== ENCOUNTER 2019-11-08 12:20 | Outpatient (CLI) | payer OTHER, SELFPAY | END 2019-11-08 12:21 | disposition home or self-care (01) | LOC: SOT 12:22 | PROVIDERS: Family Provider Family Medicine; Visit Provider Orthopaedic Surgery | DX: L03.011 Cellulitis of right finger (principal) | CPT/HCPCS: L3807 ==

== ENCOUNTER 2019-11-10 09:44 | Outpatient (REF) | payer OTHER, SELFPAY ==
[2019-11-10 09:59] LABS: Hematocrit 46.3 % (42.0-52.0); Hemoglobin 15.4 g/dL (11.7-16.6); Mean Corpuscular HGB Conc 33.3 g/dL (30.0-36.0); Mean Corpuscular Hemoglobin 29.1 pg (28.0-34.0); Mean Corpuscular Volume 87.5 fL (80-94); Mean Platelet Volume 9.4 fL (7.4-10.4); Platelet Count 339 10^3/cmm (130-400); Red Blood Count 5.29 10^6/uL (4.1-5.3); Red Cell Distribution Width 11.7 % (12.1-15.1); White Blood Count 6.5 10^3/uL (4.0-10.0)
[2019-11-10 10:26] LABS: C Reactive Protein 4.4 mg/L (0.0-4.9)
[2019-11-10 10:46] LABS: Absolute Segmented Neutrophil 3.1 10/cmm (1.6-7.1); Band Neutrophils Absolute 0.5 10^3/cmm (0.0-1.2); Basophils Absolute 0.1 10^3/cmm (0.0-0.2); Eosinophils 1 %; Lymphocytes 27 %; Microcytosis Trace; Monocytes Absolute 0.7 10^3/cmm (0.1-0.6); Platelet Estimate Normal (Normal); Segmented Neutrophils 49 %; Total Cells Counted 100 (0-100)
[2019-11-10 11:20] LABS: Erythrocyte Sedimentation Rate 15 mm/hr (0-10)
== END 2019-11-10 09:45 | disposition home or self-care (01) ==
LOC: LAB 09:44
PROVIDERS: Family Provider Family Medicine; Visit Provider Orthopaedic Surgery
DX: S61.411A Laceration without foreign body of right hand, initial encounter (principal); X58.XXXA Exposure to other specified factors, initial encounter
CPT/HCPCS: 85007; 85027; 85651; 86140

== ENCOUNTER 2019-11-15 09:26 | Outpatient (REF) | payer OTHER, SELFPAY ==
[2019-11-15 09:38] LABS: Basophils % 0.6 %; Eosinophils # 0.1 10^3/uL (0.0-0.8); Eosinophils % 1.5 %; Hematocrit 47.9 % (42.0-52.0); Hemoglobin 15.9 g/dL (11.7-16.6); Lymphocytes # 2.6 10^3/uL (0.8-4.8); Lymphocytes % 37.4 %; Mean Corpuscular HGB Conc 33.2 g/dL (30.0-36.0); Mean Corpuscular Hemoglobin 29.9 pg (28.0-34.0); Mean Corpuscular Volume 90.2 fL (80-94); Monocytes # 0.6 10^3/uL (0.2-0.9); Monocytes % 8.5 %; Neutrophils # 3.5 10^3/uL (1.8-7.7); Neutrophils % 51.9 %; Nucleated Red Blood Cells % 0 %; Platelet Count 375 10^3/cmm (130-400); Red Blood Count 5.31 10^6/uL (4.1-5.3); Red Cell Distribution Width 11.9 % (12.1-15.1); White Blood Count 6.8 10^3/uL (4.0-10.0)
[2019-11-15 10:00] LABS: C Reactive Protein 1.6 mg/L (0.0-4.9)
[2019-11-15 10:24] LABS: Erythrocyte Sedimentation Rate 9 mm/hr (0-10)
== END 2019-11-15 09:27 | disposition home or self-care (01) ==
LOC: LAB 09:26
PROVIDERS: Family Provider Family Medicine; PCP Orthopaedic Surgery; Visit Provider Orthopaedic Surgery
DX: Z01.89 Encounter for other specified special examinations (principal)
CPT/HCPCS: 36415; 85025; 85651; 86140

== ENCOUNTER 2020-08-07 20:28 | Emergency (ER) | payer OTHER, BC, SELFPAY ==
[2020-08-07 20:33] VITALS: BP 142/91; PULSE 77; RESP 16; TEMP 36.8; O2SAT 97; BMI 25.7
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
[2020-08-07] MEDS: HYDROcodone-acetaminophen 7.5-325 mg Tablet 1 TAB PO (21:19)
== END 2020-08-07 21:38 | disposition home or self-care (01) ==
PROVIDERS: Emergency Provider Emergency Medicine; PCP Orthopaedic Surgery
DX: S39.012A Strain of muscle, fascia and tendon of lower back, initial encounter (principal); F17.210 Nicotine dependence, cigarettes, uncomplicated; V89.2XXA Person injured in unspecified motor-vehicle accident, traffic, initial encounter
CPT/HCPCS: 12345; 72100; 99281; 99283

== ENCOUNTER 2021-05-09 22:43 | Emergency (ER) | payer OTHER, SELFPAY ==
[2021-05-09 22:55] VITALS: BP 127/81; PULSE 65; RESP 17; TEMP 36.8; O2SAT 99; BMI 29.5
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
--- NOTE | 2021-05-09 23:04 | W.ED.ABDPA2 ---
HPI - Abdominal Pain General: Chief Complaint: Abdominal Pain Stated Complaint: lower abd pain Time Seen by Provider: 05/09/21 23:01 History of Present Illness: HPI narrative: This patient is a 41-year-old male who presents to the emergency department complaint of right lower quadrant abdominal pain has been present for about 3 days. Patient states he also feels like he has had fever and chills. Patient said no diarrhea but has had some nausea and vomiting. Patient states the right lower quadrant abdominal pain is getting worse. Patient is less p.o. intake was 2 hours ago. MD elicited complaint: abdominal pain Onset (ago): day(s) Pain Consistency: constant Location: RLQ Associated Symptoms: Reports nausea; Denies chills, dysuria, fever(s) and vomiting Review of Systems General: Reports: 10 or more systems reviewed and unremarkable except in HPI and below Const: Denies: fever(s), chills, body aches or fatigue Eyes: Denies: change in vision or blurry vision ENMT: Denies: throat pain, hoarseness or mouth pain Card: Denies: chest pain, palpitations, irregular heart rhythm, edema, swelling of feet/ankles or lightheadedness Resp: Denies: dyspnea, productive cough, non-productive cough, wheezing or pain on inspiration GI: Reports: abdominal pain and nausea; Denies: vomiting : Denies: flank pain, dysuria, urinary frequency, urinary urgency or urinary hesitancy Musc: Denies: neck pain, back pain, extremity pain, extremity swelling, joint pain, joint swelling, joint redness, joint warmth or limited range of motion Skin/Breast: Denies: rash, pruritus, erythema or skin tenderness Neuro: Denies: headache(s), numbness in extremities or weakness in extremities Psych: Denies: anxiety or depression PFS ED PFSH: Medical History Amputation of right middle finger Cellulitis of finger of right hand Social History Smoking and tobacco status: current every day smoker Physical Exam Const: COMMON NORMALS: no acute distress, average body habitus, patient oriented x3, no limitations, healthy appearing, alert and well nourished HENMT: COMMON NORMALS: normocephalic, atraumatic, hearing grossly normal bilaterally, external ears normal, EAC's normal, TM's normal bilaterally, Normal external nose present, Normal nasal mucous membranes and turbinates present, moist oral mucous membranes, oropharynx normal, dentition normal and gingiva normal HEAD & SCALP: normocephalic and atraumatic NOSE: Normal external nose present and Normal nasal mucous membranes and turbinates present EXTERNAL EAR: Yes external ears normal EXTERNAL AUDITORY CANAL: EAC's normal TYMPANIC MEMBRANE: TM's normal bilaterally Neck/C-Spine: COMMON NORMALS: full ROM, no lymphadenopathy, supple, no meningeal signs, no JVD, Thyroid normal and No carotid bruits THYROID: Thyroid normal Chest: COMMONS NORMALS: normal inspection of the chest, normal palpation of entire chest wall, normal inspection of the breasts and normal palpation of the breasts Breast/axilla inspection: Yes normal inspection of the breasts BREAST/AXILLA PALPATION: Yes normal palpation of the breasts Resp: COMMON NORMALS: normal respiratory effort, No retractions, No use of accessory muscles, clear to auscultation bilaterally and percussion normal AUSCULTATION: clear to auscultation bilaterally PERCUSSION: percussion normal Cardio: COMMON NORMALS: no JVD, regular rate, regular rhythm, S1 normal heart sound present, S2 normal heart sound present, No gallops present (Cardio), No clicks present (Cardio), No murmurs present (Cardio), No rub (Cardio) and Peripheral pulses 2+ throughout RATE: regular rate RHYTHM: regular rhythm HEART SOUNDS: S1 normal heart sound present and S2 normal heart sound present PERIPHERAL PULSES: Peripheral pulses 2+ throughout GI: COMMON NORMALS: Normal to inspection, nondistended, normoactive bowel sounds present, Soft to palpation, No hepatosplenomegaly present, no masses and no bruits PALPATION: Yes Soft to palpation, Yes Tenderness to palpation present (GI) Details: RLQ and Yes No hepatosplenomegaly present : COMMON NORMALS: Yes no CVA tenderness BLADDER/KIDNEY EXAM: Yes no CVA tenderness Back/Pelvis: COMMON NORMALS: no CVA tenderness, thoracic and lumbar spine normal to inspection, no thoracic nor lumbar tenderness, thoraco-lumbar ROM normal and straight leg raise negative bilaterally Extremity: COMMON NORMALS: normal to inspection, full ROM, capillary refill normal, no joint enlargement, no clubbing, cyanosis or edema, no calf tenderness and no pedal edema Neuro: COMMON NORMALS: patient oriented x3 SENSORIUM/ORIENTATION: Yes alert MENINGEAL SIGNS: Yes no meningeal signs Course Reevaluation(s): Reevaluation #1: CT scan shows patient has mesenteric adenitis. Patient be given a prescription for Keflex. Patient has be a clear liquid diet until pain-free. Patient is to follow-up with PCP in 2 to 3 days. The medications as prescribed Time: 01:49 Vital Signs: Vital signs: Vital Signs Temperature 98.3 F 05/09/21 22:55 Pulse Rate 64 05/10/21 00:44 Respiratory Rate 18 05/10/21 00:44 Blood Pressure 116/61 05/10/21 00:44 Pulse Oximetry 99 05/10/21 00:44 MDM - Abdominal Pain MDM Narrative: Medical decision making narrative: CT scan shows patient has mesenteric adenitis. Patient be given a prescription for Keflex. Patient has be a clear liquid diet until pain-free. Patient is to follow-up with PCP in 2 to 3 days. The medications as prescribed Differential Diagnosis: Differential diagnosis abdominal pain: Likely abdominal pain, acute appendicitis, calculus of kidney, constipation, diverticulitis, endometriosis, gastroenteritis, pancreatitis and small bowel obstruction Medical Records: Attestation: I reviewed the patient's medical records. Lab Data: Attestation: I reviewed the patient's lab results. Labs: Lab Results 05/09/21 05/09/21 05/10/21 Range/Units 23:20 23:20 00:45 WBC 8.4 (4.0-10.0) 10^3/ uL RBC 5.15 (4.1-5.3) 10^6/u L Hgb 15.3 (11.7-16.6) g/dL Hct 46.4 (42.0-52.0) % MCV 90.1 (80-94) fL MCH 29.7 (28.0-34.0) pg MCHC 33.0 (30.0-36.0) g/dL RDW 12.1 (12.1-15.1) % Plt Count 299 (130-400) 10^3/c mm MPV 9.3 (7.4-10.4) fL Neut % (Auto) 46.9 % Lymph % (Auto) 40.4 % [place] % (Auto) 10.5 % Eos % (Auto) 1.5 % Baso % (Auto) 0.5 % Neut # (Auto) 3.95 (1.8-7.7) 10^3/u L Lymph # (Auto) 3.4 (0.8-4.8) 10^3/u L [place] # (Auto) 0.9 (0.2-0.9) 10^3/u L Eos # (Auto) 0.1 (0.0-0.8) 10^3/u L Baso # (Auto) 0.0 (0.0-0.1) 10^3/u L Nucleated RBC % (a uto) 0 % Nucleated RBCs # 0.0 /100WBC Sodium 138 (136-145) mmol/L Potassium 3.5 (3.5-5.1) mmol/L Chloride 104 (98-107) mmol/L Carbon Dioxide 26 (22-29) mmol/L Anion Gap 11.5 (5-19) BUN 12 (6-20) mg/dL Creatinine 1.1 (0.7-1.2) mg/dL GFR Calculation 74.1 L (90-130) mL/min Glucose 84 (65-115) mg/dL Calculated Osmolal ity 285 (285-295) mOsm/k g Calcium 8.1 L (8.5-10.5) mg/dL Total Bilirubin 0.2 (0.15-1.2) mg/dL AST 21 (0-40) U/L ALT 25 (0-41) U/L Alkaline Phosphata se 91 (40-130) IU/L Total Protein 6.0 L (6.6-8.7) g/dL Albumin 4.0 (3.5-5.2) g/dL Globulin 2.0 (1.3-4.6) g/dL Urine Color Yellow (Yellow) Urine Appearance Clear (CLEAR) Urine pH 5 (5-7) Ur Specific Gravit y 1.015 (1.005-1.030) Urine Protein Neg (Negative) Urine Glucose (UA) Norm (Normal) Urine Ketones Negative (Negative) Urine Blood Neg (Negative) Urine Nitrate Negative (Negative) Urine Bilirubin Neg (Negative) Urine Urobilinogen 4 H (Negative) mg/dL Ur Leukocyte Nicole ase Negative (Negative) Discharge Plan Discharge Patient Disposition: Home Clinical Impression: Acute mesenteric adenitis Condition: Stable Prescriptions: New dicyclomine 20 mg tablet 20 mg PO TID Qty: 20 RF: 0 diclofenac sodium 75 mg tablet,delayed release (DR/EC) 75 mg PO BID PRN (Reason: pain) Qty: 20 RF: 0 doxycycline hyclate 100 mg capsule 100 mg PO BID 7 Days Qty: 14 RF: 0 No Action (DME) TKO splint Qty: 1 RF: 0 Triple Antibiotic 3.5mg-400 unit- 5,000 unit/gram ointment 1 applic TOPICAL BID Qty: 9 RF: 1 Robaxin-750 750 mg tablet 750 mg PO Q6H Qty: 30 RF: 0 Naprosyn 500 mg tablet 500 mg PO BID PRN (Reason: pain) Qty: 20 RF: 0 Discharge Orders: Discharge ED (Routine); Ordered 05/10/21 Ordered By: Atif Rudd Discharge Diet: Advance as tolerated Discharge Activity: Resume usual activity Patient Instructions: Opioid Safety Activity Restrictions/Additional Instructions: Encourage p.o. fluids. Clear liquid diet until pain-free. 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
[2021-05-09] MEDS: sodium chloride 0.9% 1,000 ML 999 ML IV (23:16)
[2021-05-09 23:24] VITALS: BP 122/74; PULSE 62; RESP 18; O2SAT 97
--- NOTE | 2021-05-09 23:25 | PC.NURSE ---
Unable to provide urine specimen; will try again after more fluids infuse.
[2021-05-09 23:36] LABS: Basophils % 0.5 %; Eosinophils # 0.1 10^3/uL (0.0-0.8); Eosinophils % 1.5 %; Hematocrit 46.4 % (42.0-52.0); Hemoglobin 15.3 g/dL (11.7-16.6); Lymphocytes # 3.4 10^3/uL (0.8-4.8); Lymphocytes % 40.4 %; Mean Corpuscular Hemoglobin 29.7 pg (28.0-34.0); Mean Corpuscular Volume 90.1 fL (80-94); Mean Platelet Volume 9.3 fL (7.4-10.4); Monocytes # 0.9 10^3/uL (0.2-0.9); Monocytes % 10.5 %; Neutrophils # 3.95 10^3/uL (1.8-7.7); Neutrophils % 46.9 %; Nucleated Red Blood Cells % 0 %; Platelet Count 299 10^3/cmm (130-400); Red Blood Count 5.15 10^6/uL (4.1-5.3); Red Cell Distribution Width 12.1 % (12.1-15.1); White Blood Count 8.4 10^3/uL (4.0-10.0)
[2021-05-09 23:55] LABS: Alanine Aminotransferase 25 U/L (0-41); Alkaline Phosphatase 91 IU/L (40-130); Anion Gap 11.5 (5-19); Aspartate Amino Transferase 21 U/L (0-40); Blood Urea Nitrogen 12 mg/dL (6-20); Calcium 8.1 mg/dL (8.5-10.5); Carbon Dioxide 26 mmol/L (22-29); Chloride 104 mmol/L (98-107); Glomerular Filtration Rate 74.1 mL/min (90-130); Glucose 84 mg/dL (65-115); Osmolality Calculated 285 mOsm/kg (285-295); Potassium 3.5 mmol/L (3.5-5.1); Sodium 138 mmol/L (136-145); Total Bilirubin 0.2 mg/dL (0.15-1.2)
--- NOTE | 2021-05-10 00:19 | PC.NURSE ---
Gone to CT. Still unable to provide urine specimen. Stated I tried 3 times. States he has trouble peeing.
[2021-05-10] MEDS: iohexol 300 mg/mL 100 mL Btl IV (00:23)
--- NOTE | 2021-05-10 00:40 | PC.NURSE ---
Ambulated to bathroom to attempt to provide urine specimen.
[2021-05-10 00:44] VITALS: BP 116/61; PULSE 64; RESP 18; O2SAT 99
[2021-05-10 00:48] LABS: Add Urine Microscopic? NO; Charge for UA Resulting for Rev
[2021-05-10 00:51] LABS: Bilirubin Urine Neg (Negative); Blood Urine Neg (Negative); Glucose Urine UA Norm (Normal); Ketones Urine Negative (Negative); Leukocyte Esterase Urine Negative (Negative); Nitrate Urine Negative (Negative); Protein Urine Neg (Negative); Specific Gravity, Urine 1.015 (1.005-1.030); Urine Appearance Clear (CLEAR); Urine Color Yellow (Yellow); Urobilinogen Urine 4 mg/dL (Negative); pH Urine 5 (5-7)
[2021-05-10 02:00] VITALS: BP 111/64; PULSE 63; RESP 16; O2SAT 99
== END 2021-05-10 02:01 | disposition home or self-care (01) ==
PROVIDERS: Emergency Provider Emergency Medicine
DX: I88.0 Nonspecific mesenteric lymphadenitis (principal); F17.200 Nicotine dependence, unspecified, uncomplicated
CPT/HCPCS: 74177; 80053; 81003; 85025; 87040; 96360; 99283; J7030; Q9967

== ENCOUNTER 2021-05-16 21:46 | Emergency (ER) | payer OTHER, SELFPAY ==
[2021-05-16 23:32] VITALS: BP 115/61; PULSE 85; RESP 16; TEMP 39.2; O2SAT 95; BMI 30.8
--- NOTE | 2021-05-16 23:37 | XRR_ITS ---
PROCEDURE INFORMATION: Exam: XR Chest Exam date and time: 05/16/2021 11:37 PM Age: 41 years old Clinical indication: Fever and shortness of breath; Patient HX: Sob/fever. TECHNIQUE: Imaging protocol: XR of the chest. Views: 1 view. COMPARISON: CT abdomen pelvis w con* [id number] 05/10/2021 12:16 AM FINDINGS: Lungs: Hazy left basilar opacity which could be secondary to atelectasis or pneumonia. Pleural spaces: Unremarkable. No pleural effusion. No pneumothorax. Heart/Mediastinum: Unremarkable. No cardiomegaly. Bones/joints: Unremarkable. XR/XR chest 1V portable [id number] IMPRESSION: Hazy left basilar opacity which could be secondary to atelectasis or pneumonia.
--- NOTE | 2021-05-16 23:37 | ECG_ITS ---
[facility] ED Test Date: 2021-05-17 Pat Name: Frederick Francisco Department: Room: Gender: Male Senior Policy Advisor: : 1980 Requested By: Jadyn Sweet Order Number: [id number] Nohemi MD: Mandy Timmons M.D. Measurements Intervals [place] Rate: 77 P: 53 AL: 176 QRS: -31 QRSD: 89 T: 1 QT: 351 QTc: 397 Interpretive Statements SINUS RHYTHM MARKED LEFT AXIS DEVIATION [QRS AXIS < -30] INTERPRETATION BASED ON A DEFAULT AGE OF 41 YEARS No previous ECG available for comparison Electronically Signed On 05-21-2021 0:26:57 CDT by Mandy Timmons M.D. [id number]
[2021-05-17 02:35] VITALS: BP 108/59; RESP 18; O2SAT 97
--- NOTE | 2021-05-17 02:47 | ED_ITS ---
Documented by User: Jadyn Sweet MD 05/17/21 04:28 HPI - Altered Mental Status General: Chief Complaint: Altered Mental Status Stated Complaint: Colon Infection 05/10\ Passsing out\Incohertant Time Seen by Provider: 05/17/21 02:34 Source: patient Mode of arrival: ambulatory Limitations: no limitations History of Present Illness: HPI narrative: 41-year-old male is here states he thinks he has had heat exhaustion. 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 He states that since then he has had a fever with generalized muscle aches and extreme fatigue. He states that he just feels extremely tired and dehydrated. He denies any pain anywhere. He has had a slight cough. Patient was seen here little over a week ago and diagnosed with mesenteric adenitis but states abdominal pain is improved. States has had decreased urine output. Associated symptoms: Deny depression Review of Systems Const: Reports: fever(s), chills, body aches and fatigue Eyes: Denies: blurry vision or eye discomfort ENMT: Denies: throat pain or dental pain Card: Denies: chest pain Resp: Denies: dyspnea GI: Denies: abdominal pain, nausea, vomiting or diarrhea : Denies: dysuria Musc: Denies: neck pain or back pain Skin/Breast: Denies: rash Neuro: Denies: headache(s) Psych: Denies: depression Jayce/Lymph: Denies: easy bruising All/Imm: Denies: urticaria PFSH ED PFSH: Medical History Amputation of right middle finger Cellulitis of finger of right hand Social History Smoking and tobacco status: current every day smoker Physical Exam Const: COMMON NORMALS: no acute distress, patient oriented x3 and healthy appearing HENMT: COMMON NORMALS: normocephalic and atraumatic HEAD & SCALP: normocephalic and atraumatic Eye: COMMON NORMALS: Equal, round and reactive pupils present and EOMs intact bilaterally PUPIL: Yes Equal, round and reactive pupils present Neck/C-Spine: COMMON NORMALS: full ROM and supple Chest: COMMONS NORMALS: normal inspection of the chest and normal palpation of entire chest wall Resp: COMMON NORMALS: normal respiratory effort, No retractions, No use of accessory muscles and clear to auscultation bilaterally AUSCULTATION: clear to auscultation bilaterally Cardio: COMMON NORMALS: regular rate, regular rhythm and No murmurs present (Cardio) RATE: regular rate RHYTHM: regular rhythm GI: COMMON NORMALS: Normal to inspection, nondistended, normoactive bowel sounds present, Soft to palpation, non-tender and no masses PALPATION: Yes Soft to palpation Extremity: COMMON NORMALS: normal to inspection and full ROM Neuro: COMMON NORMALS: patient oriented x3, moves all extremities and no focal motor deficits Psych: COMMON NORMALS: mental status grossly normal, Normal thought process present and cooperative THOUGHT PROCESS: Normal thought process present Skin: COMMON NORMALS: no rashes or lesions noted and no wounds GENERAL SKIN EXAM: no rashes or lesions noted Course Vital Signs: Vital signs: Vital Signs Temperature 101.0 F H 05/17/21 06:00 Pulse Rate 70 05/17/21 06:00 Respiratory Rate 18 05/17/21 06:00 Blood Pressure 116/60 05/17/21 06:00 Pulse Oximetry 94 05/17/21 06:00 MDM - Altered Mental Status Lab Data: Labs: Lab Results 05/17/21 05/17/21 05/17/21 Range/Units 03:50 03:50 03:50 WBC 6.1 (4.0-10.0) 10^3/ uL RBC 5.08 (4.1-5.3) 10^6/u L Hgb 15.3 (11.7-16.6) g/dL Hct 45.8 (42.0-52.0) % MCV 90.2 (80-94) fL MCH 30.1 (28.0-34.0) pg MCHC 33.4 (30.0-36.0) g/dL RDW 12.3 (12.1-15.1) % Plt Count 293 (130-400) 10^3/c mm MPV 9.5 (7.4-10.4) fL Neut % (Auto) 79.9 % Lymph % (Auto) 8.7 % [place] % (Auto) 9.7 % Eos % (Auto) 1.0 % Baso % (Auto) 0.5 % Neut # (Auto) 4.85 (1.8-7.7) 10^3/u L Lymph # (Auto) 0.5 L (0.8-4.8) 10^3/u L [place] # (Auto) 0.6 (0.2-0.9) 10^3/u L Eos # (Auto) 0.1 (0.0-0.8) 10^3/u L Baso # (Auto) 0.0 (0.0-0.1) 10^3/u L Nucleated RBC % (a uto) 0 % Nucleated RBCs # 0.0 /100WBC Sodium 133 L (136-145) mmol/L Potassium 3.7 (3.5-5.1) mmol/L Chloride 100 (98-107) mmol/L Carbon Dioxide 24 (22-29) mmol/L Anion Gap 12.7 (5-19) BUN 11 (6-20) mg/dL Creatinine 1.0 (0.7-1.2) mg/dL GFR Calculation 82.8 L (90-130) mL/min Glucose 85 (65-115) mg/dL Calculated Osmolal ity 275 L (285-295) mOsm/k g Lactate 0.7 (0.5-2.2) mmol/L Calcium 8.9 (8.5-10.5) mg/dL Magnesium 1.9 (1.7-2.3) mg/dL Total Bilirubin 0.5 (0.15-1.2) mg/dL AST 23 (0-40) U/L ALT 23 (0-41) U/L Alkaline Phosphata se 74 (40-130) IU/L Creatine Kinase (39-308) U/L Total Protein 6.6 (6.6-8.7) g/dL Albumin 4.4 (3.5-5.2) g/dL Globulin 2.2 (1.3-4.6) g/dL Lipase 35 (13-60) U/L Urine Color (Yellow) Urine Appearance (CLEAR) Urine pH (5-7) Ur Specific Gravit y (1.005-1.030) Urine Protein (Negative) Urine Glucose (UA) (Normal) Urine Ketones (Negative) Urine Blood (Negative) Urine Nitrate (Negative) Urine Bilirubin (Negative) Urine Urobilinogen (Negative) mg/dL Ur Leukocyte Nicole ase (Negative) Urine RBC (0-2) /hpf Urine WBC (0-5) /hpf Ur Squamous Epith Cells (0-5) /hpf Amorphous Sediment /hpf Urine Bacteria (NONE) /hpf Urine Mucus /hpf Ethyl Alcohol < 10 (0-10) mg/dL 05/17/21 05/17/21 Range/Units 03:50 06:20 WBC (4.0-10.0) 10^3/ uL RBC (4.1-5.3) 10^6/u L Hgb (11.7-16.6) g/dL Hct (42.0-52.0) % MCV (80-94) fL MCH (28.0-34.0) pg MCHC (30.0-36.0) g/dL RDW (12.1-15.1) % Plt Count (130-400) 10^3/c mm MPV (7.4-10.4) fL Neut % (Auto) % Lymph % (Auto) % [place] % (Auto) % Eos % (Auto) % Baso % (Auto) % Neut # (Auto) (1.8-7.7) 10^3/u L Lymph # (Auto) (0.8-4.8) 10^3/u L [place] # (Auto) (0.2-0.9) 10^3/u L Eos # (Auto) (0.0-0.8) 10^3/u L Baso # (Auto) (0.0-0.1) 10^3/u L Nucleated RBC % (a uto) % Nucleated RBCs # /100WBC Sodium (136-145) mmol/L Potassium (3.5-5.1) mmol/L Chloride (98-107) mmol/L Carbon Dioxide (22-29) mmol/L Anion Gap (5-19) BUN (6-20) mg/dL Creatinine (0.7-1.2) mg/dL GFR Calculation (90-130) mL/min Glucose (65-115) mg/dL Calculated Osmolal ity (285-295) mOsm/k g Lactate (0.5-2.2) mmol/L Calcium (8.5-10.5) mg/dL Magnesium (1.7-2.3) mg/dL Total Bilirubin (0.15-1.2) mg/dL AST (0-40) U/L ALT (0-41) U/L Alkaline Phosphata se (40-130) IU/L Creatine Kinase 150 (39-308) U/L Total Protein (6.6-8.7) g/dL Albumin (3.5-5.2) g/dL Globulin (1.3-4.6) g/dL Lipase (13-60) U/L Urine Color Yellow (Yellow) Urine Appearance Clear (CLEAR) Urine pH 5 (5-7) Ur Specific Gravit y 1.025 (1.005-1.030) Urine Protein Neg (Negative) Urine Glucose (UA) Norm (Normal) Urine Ketones Negative (Negative) Urine Blood Neg (Negative) Urine Nitrate Negative (Negative) Urine Bilirubin 1+ H (Negative) Urine Urobilinogen 1 H (Negative) mg/dL Ur Leukocyte Nicole ase Negative (Negative) Urine RBC Rare (0-2) /hpf Urine WBC 0-4 H (0-5) /hpf Ur Squamous Epith Cells 0-4 H (0-5) /hpf Amorphous Sediment 1+ /hpf Urine Bacteria Trace (NONE) /hpf Urine Mucus 2+ /hpf Ethyl Alcohol (0-10) mg/dL EKG Data^: EKG 1: Attestation: I personally reviewed and interpreted this EKG as follows: EKG interpretation date: 05/17/21 EKG interpretation time: 04:23 Interpretation: nsr hr [address] or t wave abnormalities qrs 89 qtc 382 Discharge Plan Discharge Patient Disposition: Home Clinical Impression: Fever, Mesenteric adenitis, Heat exhaustion Condition: Stable Prescriptions: No Action (DME) TKO splint Qty: 1 RF: 0 Triple Antibiotic 3.5mg-400 unit- 5,000 unit/gram ointment 1 applic TOPICAL BID Qty: 9 RF: 1 Robaxin-750 750 mg tablet 750 mg PO Q6H Qty: 30 RF: 0 Naprosyn 500 mg tablet 500 mg PO BID PRN (Reason: pain) Qty: 20 RF: 0 dicyclomine 20 mg tablet 20 mg PO TID Qty: 20 RF: 0 diclofenac sodium 75 mg tablet,delayed release (DR/EC) 75 mg PO BID PRN (Reason: pain) Qty: 20 RF: 0 doxycycline hyclate 100 mg capsule 100 mg PO BID 7 Days Qty: 14 RF: 0 Discharge Orders: Discharge ED (Routine); Ordered 05/17/21 Ordered By: Atif Rudd Discharge Diet: Advance as tolerated Discharge Activity: Resume usual activity Patient Instructions: Opioid Safety Activity Restrictions/Additional Instructions: Patient will be given 1 dose of doxycycline in the emergency department pending tick titers that have been drawn for lab. Patient is to continue the doxycycline as written for him as a prescription at his last visit. Patient is encouraged p.o. fluids continue Tylenol Motrin as needed as needed for fever pain and follow-up with PCP as needed. Patient may return to the emergency department as needed if symptoms fail to improve or worsen. Coding Level of Care Code ED Director Of Sustainability for [facility] Exam Comprehensive Documented by User: Atif Rudd MD 05/17/21 07:49 HPI - Altered Mental Status General: Chief Complaint: Altered Mental Status Stated Complaint: Colon Infection 05/10\ Passsing out\Incohertant Time Seen by Provider: 05/17/21 02:34 [facility] ED PFSH: Medical History Amputation of right middle finger Cellulitis of finger of right hand Social History Smoking and tobacco status: current every day smoker Course ED course: Patient doing well and stable. Resting comfortably. Vital signs stable. Begin negative work-up in the emergency department for any acute findings. I did discuss at length with patient and family patient's need to continue with the doxycycline. Patient and family admit that he has not been taking this antibiotic. 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 I advised the patient that he needs to take a couple days off work and work note can provided. Patient will be given 1 dose of doxycycline in the emergency department pending tick titers that have been drawn for lab. Patient is to continue the doxycycline as written for him as a prescription at his last visit. Patient is encouraged p.o. fluids continue Tylenol Motrin as needed as needed for fever pain and follow-up with PCP as needed. Patient may return to the emergency department as needed if symptoms fail to improve or worsen. Vital Signs: Vital signs: Vital Signs Temperature 101.0 F H 05/17/21 06:00 Pulse Rate 70 05/17/21 06:00 Respiratory Rate 18 05/17/21 06:00 Blood Pressure 116/60 05/17/21 06:00 Pulse Oximetry 94 05/17/21 06:00 MDM - Altered Mental Status MDM Narrative: Medical decision making narrative: 41-year-old male is here states he thinks he has had heat exhaustion. 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 He states that since then he has had a fever with generalized muscle aches and extreme fatigue. He states that he just feels extremely tired and dehydrated. He denies any pain anywhere. He has had a slight cough. Patient was seen here little over a week ago and diagnosed with mesenteric adenitis but states abdominal pain is improved. States has had decreased urine output. Patient doing well and stable. Resting comfortably. Vital signs stable. Begin negative work-up in the emergency department for any acute findings. I did discuss at length with patient and family patient's need to continue with the doxycycline. Patient and family admit that he has not been taking this antibiotic. 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 I advised the patient that he needs to take a couple days off work and work note can provided. Patient will be given 1 dose of doxycycline in the emergency department pending tick titers that have been drawn for lab. Patient is to continue the doxycycline as written for him as a prescription at his last visit. Patient is encouraged p.o. fluids continue Tylenol Motrin as needed as needed for fever pain and follow-up with PCP as needed. Patient may return to the emergency department as needed if symptoms fail to improve or worsen. Lab Data: Labs: Lab Results 05/17/21 05/17/21 05/17/21 Range/Units 03:50 03:50 03:50 WBC 6.1 (4.0-10.0) 10^3/ uL RBC 5.08 (4.1-5.3) 10^6/u L Hgb 15.3 (11.7-16.6) g/dL Hct 45.8 (42.0-52.0) % MCV 90.2 (80-94) fL MCH 30.1 (28.0-34.0) pg MCHC 33.4 (30.0-36.0) g/dL RDW 12.3 (12.1-15.1) % Plt Count 293 (130-400) 10^3/c mm MPV 9.5 (7.4-10.4) fL Neut % (Auto) 79.9 % Lymph % (Auto) 8.7 % [place] % (Auto) 9.7 % Eos % (Auto) 1.0 % Baso % (Auto) 0.5 % Neut # (Auto) 4.85 (1.8-7.7) 10^3/u L Lymph # (Auto) 0.5 L (0.8-4.8) 10^3/u L [place] # (Auto) 0.6 (0.2-0.9) 10^3/u L Eos # (Auto) 0.1 (0.0-0.8) 10^3/u L Baso # (Auto) 0.0 (0.0-0.1) 10^3/u L Nucleated RBC % (a uto) 0 % Nucleated RBCs # 0.0 /100WBC Sodium 133 L (136-145) mmol/L Potassium 3.7 (3.5-5.1) mmol/L Chloride 100 (98-107) mmol/L Carbon Dioxide 24 (22-29) mmol/L Anion Gap 12.7 (5-19) BUN 11 (6-20) mg/dL Creatinine 1.0 (0.7-1.2) mg/dL GFR Calculation 82.8 L (90-130) mL/min Glucose 85 (65-115) mg/dL Calculated Osmolal ity 275 L (285-295) mOsm/k g Lactate 0.7 (0.5-2.2) mmol/L Calcium 8.9 (8.5-10.5) mg/dL Magnesium 1.9 (1.7-2.3) mg/dL Total Bilirubin 0.5 (0.15-1.2) mg/dL AST 23 (0-40) U/L ALT 23 (0-41) U/L Alkaline Phosphata se 74 (40-130) IU/L Creatine Kinase (39-308) U/L Total Protein 6.6 (6.6-8.7) g/dL Albumin 4.4 (3.5-5.2) g/dL Globulin 2.2 (1.3-4.6) g/dL Lipase 35 (13-60) U/L Urine Color (Yellow) Urine Appearance (CLEAR) Urine pH (5-7) Ur Specific Gravit y (1.005-1.030) Urine Protein (Negative) Urine Glucose (UA) (Normal) Urine Ketones (Negative) Urine Blood (Negative) Urine Nitrate (Negative) Urine Bilirubin (Negative) Urine Urobilinogen (Negative) mg/dL Ur Leukocyte Nicole ase (Negative) Urine RBC (0-2) /hpf Urine WBC (0-5) /hpf Ur Squamous Epith Cells (0-5) /hpf Amorphous Sediment /hpf Urine Bacteria (NONE) /hpf Urine Mucus /hpf Ethyl Alcohol < 10 (0-10) mg/dL 05/17/21 05/17/21 Range/Units 03:50 06:20 WBC (4.0-10.0) 10^3/ uL RBC (4.1-5.3) 10^6/u L Hgb (11.7-16.6) g/dL Hct (42.0-52.0) % MCV (80-94) fL MCH (28.0-34.0) pg MCHC (30.0-36.0) g/dL RDW (12.1-15.1) % Plt Count (130-400) 10^3/c mm MPV (7.4-10.4) fL Neut % (Auto) % Lymph % (Auto) % [place] % (Auto) % Eos % (Auto) % Baso % (Auto) % Neut # (Auto) (1.8-7.7) 10^3/u L Lymph # (Auto) (0.8-4.8) 10^3/u L [place] # (Auto) (0.2-0.9) 10^3/u L Eos # (Auto) (0.0-0.8) 10^3/u L Baso # (Auto) (0.0-0.1) 10^3/u L Nucleated RBC % (a uto) % Nucleated RBCs # /100WBC Sodium (136-145) mmol/L Potassium (3.5-5.1) mmol/L Chloride (98-107) mmol/L Carbon Dioxide (22-29) mmol/L Anion Gap (5-19) BUN (6-20) mg/dL Creatinine (0.7-1.2) mg/dL GFR Calculation (90-130) mL/min Glucose (65-115) mg/dL Calculated Osmolal ity (285-295) mOsm/k g Lactate (0.5-2.2) mmol/L Calcium (8.5-10.5) mg/dL Magnesium (1.7-2.3) mg/dL Total Bilirubin (0.15-1.2) mg/dL AST (0-40) U/L ALT (0-41) U/L Alkaline Phosphata se (40-130) IU/L Creatine Kinase 150 (39-308) U/L Total Protein (6.6-8.7) g/dL Albumin (3.5-5.2) g/dL Globulin (1.3-4.6) g/dL Lipase (13-60) U/L Urine Color Yellow (Yellow) Urine Appearance Clear (CLEAR) Urine pH 5 (5-7) Ur Specific Gravit y 1.025 (1.005-1.030) Urine Protein Neg (Negative) Urine Glucose (UA) Norm (Normal) Urine Ketones Negative (Negative) Urine Blood Neg (Negative) Urine Nitrate Negative (Negative) Urine Bilirubin 1+ H (Negative) Urine Urobilinogen 1 H (Negative) mg/dL Ur Leukocyte Nicole ase Negative (Negative) Urine RBC Rare (0-2) /hpf Urine WBC 0-4 H (0-5) /hpf Ur Squamous Epith Cells 0-4 H (0-5) /hpf Amorphous Sediment 1+ /hpf Urine Bacteria Trace (NONE) /hpf Urine Mucus 2+ /hpf Ethyl Alcohol (0-10) mg/dL Imaging Data^: CXR: Attestation: I personally reviewed and interpreted this imaging study as follows: Radiologist's impression: IMPRESSION: Hazy left basilar opacity which could be secondary to atelectasis or pneumonia. CT Abd/Pel: Attestation: I personally reviewed and interpreted this imaging study as follows: Radiologist's impression: IMPRESSION: No acute findings. CT Head: Attestation: I personally reviewed and interpreted this imaging study as follows: Radiologist's impression: IMPRESSION: 1. No acute intracranial hemorrhage or mass effect. 2. Paranasal sinus findings as discussed above. 3. Other findings discussed above. Discharge Plan Discharge Patient Disposition: Home Clinical Impression: Fever, Mesenteric adenitis, Heat exhaustion Condition: Stable Prescriptions: No Action (DME) TKO splint Qty: 1 RF: 0 Triple Antibiotic 3.5mg-400 unit- 5,000 unit/gram ointment 1 applic TOPICAL BID Qty: 9 RF: 1 Robaxin-750 750 mg tablet 750 mg PO Q6H Qty: 30 RF: 0 Naprosyn 500 mg tablet 500 mg PO BID PRN (Reason: pain) Qty: 20 RF: 0 dicyclomine 20 mg tablet 20 mg PO TID Qty: 20 RF: 0 diclofenac sodium 75 mg tablet,delayed release (DR/EC) 75 mg PO BID PRN (Reason: pain) Qty: 20 RF: 0 doxycycline hyclate 100 mg capsule 100 mg PO BID 7 Days Qty: 14 RF: 0 Discharge Orders: Discharge ED (Routine); Ordered 05/17/21 Ordered By: Atif Rudd Discharge Diet: Advance as tolerated Discharge Activity: Resume usual activity Patient Instructions: Opioid Safety Activity Restrictions/Additional Instructions: Patient will be given 1 dose of doxycycline in the emergency department pending tick titers that have been drawn for lab. Patient is to continue the doxycycline as written for him as a prescription at his last visit. Patient is encouraged p.o. fluids continue Tylenol Motrin as needed as needed for fever pain and follow-up with PCP as needed. Patient may return to the emergency department as needed if symptoms fail to improve or worsen. Coding Level of Care Code ED Director Of Sustainability for [facility] Exam Comprehensive
[2021-05-17] MEDS: sodium chloride 0.9% 1,000 ML 999 ML IV ×2 (03:05→06:43)
[2021-05-17] MEDS: ondansetron 2 mg/ML SDV 2 mL 4 MG IVP (03:08)
[2021-05-17 03:10] VITALS: RESP 18; O2SAT 97
[2021-05-17] MEDS: morphine 4 mg/mL SDV 1 mL IVP (03:10)
[2021-05-17 04:16] LABS: Basophils % 0.5 %; Eosinophils # 0.1 10^3/uL (0.0-0.8); Hematocrit 45.8 % (42.0-52.0); Hemoglobin 15.3 g/dL (11.7-16.6); Lymphocytes # 0.5 10^3/uL (0.8-4.8); Lymphocytes % 8.7 %; Mean Corpuscular HGB Conc 33.4 g/dL (30.0-36.0); Mean Corpuscular Hemoglobin 30.1 pg (28.0-34.0); Mean Corpuscular Volume 90.2 fL (80-94); Mean Platelet Volume 9.5 fL (7.4-10.4); Monocytes # 0.6 10^3/uL (0.2-0.9); Monocytes % 9.7 %; Neutrophils # 4.85 10^3/uL (1.8-7.7); Neutrophils % 79.9 %; Nucleated Red Blood Cells % 0 %; Platelet Count 293 10^3/cmm (130-400); Red Blood Count 5.08 10^6/uL (4.1-5.3); Red Cell Distribution Width 12.3 % (12.1-15.1); White Blood Count 6.1 10^3/uL (4.0-10.0)
[2021-05-17 04:31] LABS: Creatine Phosphokinase 150 U/L (39-308); Lactate (Lactic Acid level) 0.7 mmol/L (0.5-2.2)
--- NOTE | 2021-05-17 04:31 | PC.NURSE ---
pt and refusing COVID swab. notified
[2021-05-17 04:32] LABS: Alanine Aminotransferase 23 U/L (0-41); Albumin Level 4.4 g/dL (3.5-5.2); Alkaline Phosphatase 74 IU/L (40-130); Anion Gap 12.7 (5-19); Aspartate Amino Transferase 23 U/L (0-40); Blood Urea Nitrogen 11 mg/dL (6-20); Calcium 8.9 mg/dL (8.5-10.5); Carbon Dioxide 24 mmol/L (22-29); Chloride 100 mmol/L (98-107); Globulin 2.2 g/dL (1.3-4.6); Glomerular Filtration Rate 82.8 mL/min (90-130); Glucose 85 mg/dL (65-115); Lipase 35 U/L (13-60); Magnesium 1.9 mg/dL (1.7-2.3); Osmolality Calculated 275 mOsm/kg (285-295); Potassium 3.7 mmol/L (3.5-5.1); Sodium 133 mmol/L (136-145); Total Bilirubin 0.5 mg/dL (0.15-1.2); Total Protein 6.6 g/dL (6.6-8.7)
--- NOTE | 2021-05-17 04:33 | PC.NURSE ---
pt sats dropping to 88-89% on r/a after morphine adm. 2lpm adm via nasal cannula, pt sats improved to 96%
[2021-05-17 04:41] LABS: Alcohol Level < 10 mg/dL (0-10)
[2021-05-17 05:40] VITALS: BP 109/63; O2SAT 98
--- NOTE | 2021-05-17 05:48 | CTR_ITS ---
PROCEDURE INFORMATION: Exam: CT Head Without Contrast Exam date and time: 05/17/2021 5:48 AM Age: 41 years old Clinical indication: Pain; Headache; Additional info: KHAN TECHNIQUE: Imaging protocol: Computed tomography of the head without contrast. Radiation optimization: All CT scans at this facility use at least one of these dose optimization techniques: automated exposure control; mA and/or kV adjustment per patient size (includes targeted exams where dose is matched to clinical indication); or iterative reconstruction. COMPARISON: No relevant prior studies available. RADIATION DOSE METRICS: Total DLP (mGy-cm): 1700.33 FINDINGS: Brain: No acute intracranial hemorrhage or mass effect. No definite acute infarct by CT. Cerebral ventricles: Ventricle size is normal for age. Paranasal sinuses: Moderate opacity/fluid in the ethmoid and sphenoid sinuses. Mild mucosal thickening in the frontal and maxillary sinuses. Mastoid air cells: There is poor development/sclerosis of the mastoid air cells bilaterally, possibly a sequela of prior/chronic mastoiditis. Bones/joints: No definite acute skull fracture. CT/CT head wo con* [id number] IMPRESSION: 1. No acute intracranial hemorrhage or mass effect. 2. Paranasal sinus findings as discussed above. 3. Other findings discussed above. Radiation Dose CTDIVOL = (mGy): DLP = 1700.33 (mGy-cm)
--- NOTE | 2021-05-17 05:49 | CTR_ITS ---
PROCEDURE INFORMATION: Exam: CT Abdomen And Pelvis With Contrast Exam date and time: 05/17/2021 5:49 AM Age: 41 years old Clinical indication: Abdominal pain; Prior surgery; Additional info: Abd pain TECHNIQUE: Imaging protocol: Computed tomography of the abdomen and pelvis with contrast. Total images: 247 Radiation optimization: All CT scans at this facility use at least one of these dose optimization techniques: automated exposure control; mA and/or kV adjustment per patient size (includes targeted exams where dose is matched to clinical indication); or iterative reconstruction. Contrast material: OMNI 300; Contrast volume: 95 ml; Contrast route: INTRAVENOUS (IV); COMPARISON: CT abdomen pelvis w con* [id number] 05/10/2021 12:16 AM RADIATION DOSE METRICS: Total DLP (mGy-cm): 1792.51 FINDINGS: Lungs: Mild dependent atelectasis. Liver: Normal. No mass. Gallbladder and bile ducts: Prior cholecystectomy noted. Pancreas: Normal. No ductal dilation. Spleen: Normal. No splenomegaly. Adrenal glands: Normal. No mass. Kidneys and ureters: Normal. No hydronephrosis. Stomach and bowel: Unremarkable. No obstruction. No mucosal thickening. Appendix: No evidence of appendicitis. Intraperitoneal space: Unremarkable. No free air. No significant fluid collection. Vasculature: Mild atherosclerotic disease is evident. Lymph nodes: Unremarkable. No enlarged lymph nodes. Urinary bladder: Unremarkable as visualized. Reproductive: Unremarkable as visualized. Bones/joints: Disc degeneration is most notable at L5/S1. Soft tissues: Unremarkable. CT/CT abdomen pelvis w con* [id number] IMPRESSION: No acute findings. Radiation Dose CTDIVOL = (mGy): DLP = 1792.51 (mGy-cm)
[2021-05-17 06:00] VITALS: BP 116/60; PULSE 70; RESP 18; TEMP 38.3; O2SAT 94
[2021-05-17] MEDS: iohexol 300 mg/mL 100 mL Btl IV (06:25)
[2021-05-17] MEDS: ibuprofen 600 mg Tablet PO (06:43)
[2021-05-17 06:54] LABS: Bilirubin Urine 1+ (Negative); Blood Urine Neg (Negative); Glucose Urine UA Norm (Normal); Ketones Urine Negative (Negative); Leukocyte Esterase Urine Negative (Negative); Nitrate Urine Negative (Negative); Protein Urine Neg (Negative); Specific Gravity, Urine 1.025 (1.005-1.030); Urine Appearance Clear (CLEAR); Urine Color Yellow (Yellow); Urobilinogen Urine 1 mg/dL (Negative); pH Urine 5 (5-7)
[2021-05-17 07:10] LABS: Bacteria Urine TRACE /hpf; RBC Urine RARE /hpf (0-2); Squamous Epithelial Cell Urine 0-4 /hpf (0-5); WBC Urine 0-4 /hpf (0-5)
[2021-05-17 07:11] LABS: Add Urine Culture? No; Amorphous Sediment Urine 1+ /hpf; Mucus Urine 2+ /hpf
[2021-05-17 08:00] VITALS: BP 113/60; PULSE 78; RESP 17; O2SAT 96
[2021-05-17] MEDS: doxycycline 100 mg Tablet PO (08:02)
[2021-05-17 08:26] VITALS: BP 113/60; PULSE 78; RESP 17; O2SAT 96
[2021-05-18 12:06] LABS: Lyme AB Screen <0.90 index
[2021-05-23 17:28] LABS: E. Chaffeensis AB IGG <1:64; E. Chaffeensis AB IGM <1:20
[2021-05-24 16:42] LABS: RMSF IGG DETECTED; RMSF IGM NOT DETECTED
== END 2021-05-17 08:05 | disposition home or self-care (01) ==
PROVIDERS: Emergency Medicine; Emergency Provider Emergency Medicine
DX: T67.5XXA Heat exhaustion, unspecified, initial encounter (principal); I88.0 Nonspecific mesenteric lymphadenitis; F17.200 Nicotine dependence, unspecified, uncomplicated; X30.XXXA Exposure to excessive natural heat, initial encounter
CPT/HCPCS: 70450; 71045; 74177; 80053; 80307; 81001; 82550; 83605; 83690; 83735; 85025; 86618; 86666; 86757; 87040; 93005; 96361; 96374; 96375; 99284; J2270; J2405; J7030; Q9967